=== PATIENT | female | born 1955 | race Caucasian/White ===

== ENCOUNTER 2022-06-11 08:19 | Emergency (ER) | payer MEDICARE ==
--- NOTE | 2022-06-11 09:20 | ERPHSYRPT ---
- History of Present Illness Time Seen by Provider: 06/11/22 08:40 Source: patient Exam Limitations: no limitations Patient Subjective Stated Complaint: fell last night between [id number] after tripping on dog bed. fell on chest. c/o left sided chest wall pain radiating brandy und to back. Triage Nursing Assessment: Pt ambulates to ER bed 5 without assistance. Pt appears slightly SOB upon arrival to room. Pt changed into gown and placed on monitor. SOB resolves the longer pt sits at rest. Pt reports she tripped &fell last night on dog bed. States landed on chest. C/o L sided chest wall pain that radiates around to back. States since falling, feels SOB on exertion and when taking a deep breath. No bruising noted to L chest/back, but tenderness noted upon palpation. Lung sounds clear.Sat 95% on RA. Skin PWS. A & OX3, answers all questions appropriately. Physician History: This is an obese 66-year-old white female patient who does have history of heart surgery in the past and presents to the emergency department with history of falling after tripping over her dog late last night. She fell onto her left side of her chest. Patient states she now has left-sided chest pain and there is pain with deep inspiration in this area. Prior to the injury patient had no complaints of pain or shortness of breath. Patient took a [place] 5/325 at 0430 this morning. Occurred: yesterday (Last night) Reason for Fall: tripped (Over her dog) Injuries/Pain Location: chest (Left side chest) Loss of Consciousness: no loss of consciousness Quality: aching Severity of Pain-Max: moderate Severity of Pain-Current: moderate Modifying Factors: Improves With: other (Deep breath worsens) Associated Symptoms (Fall): chest pain (Left lateral chest with deep inspiration), shortness of breath (After the fall because of painful respiration with deep breathing) Allergies/Adverse Reactions: meperidine HCl [From Demerol] Allergy (Verified 06/11/22 08:29) Tetanus Vaccines and Toxoid [Tetanus Vaccines & Toxoid] Allergy (Verified 06/11/22 08:29) Home Medications: Aspirin [Aspirin EC] 325 mg PO DAILY 11/15/15 [History] Amitriptyline HCl 25 mg [Amitriptyline 25 mg Tablet] 25 mg PO TID 06/11/22 [History] Atorvastatin Calcium 40 mg PO DAILY 06/11/22 [History] Dexlansoprazole [Dexilant] 60 mg PO DAILY 06/11/22 [History] Ezetimibe 10 mg [Zetia 10 MG] 10 mg PO DAILY 06/11/22 [History] Hydrocodone/Acetaminophen [Hydrocodone-Acetamin 5-325 mg] 5 mg PO BID 06/11/22 [History] Metoprolol Tartrate 25 mg [Lopressor 25MG Tab] 25 mg PO BID 06/11/22 [History] Mirabegron [Myrbetriq] 50 mg PO DAILY 06/11/22 [History] Telmisartan 80 mg [Micardis 80 MG Tablet] 80 mg PO DAILY 06/11/22 [History] Zolpidem Tartrate 5 mg [Ambien 5 MG Tablet] 5 mg PO DAILY 06/11/22 [History] Hx Tetanus, Diphtheria Vaccination/Date Given: Yes Hx Influenza Vaccination/Date Given: No Hx Pneumococcal Vaccination/Date Given: No Travel Risk - International Travel Have you traveled outside of the country in past 3 weeks: No - Coronavirus Screening Are you exhibiting any of the following symptoms?: No Close contact with a COVID-19 positive Pt in past 14-21 Days: No - Vaccine Status Have you recieved a Covid-19 vaccination: No - Review of Systems Constitutional: No Symptoms Eyes: No Symptoms Ears, Nose, & Throat: No Symptoms Respiratory: Dyspnea (Mild with deep breathing and exertion secondary to fall causing left lateral chest discomfort) Cardiac: Chest Pain (Left posterior lateral pain after the fall) Abdominal/Gastrointestinal: No Symptoms Genitourinary Symptoms: No Symptoms Musculoskeletal: No Symptoms Skin: No Symptoms Neurological: No Symptoms Psychological: No Symptoms Endocrine: No Symptoms Hematologic/Lymphatic: No Symptoms Immunological/Allergic: No Symptoms All Other Systems: Reviewed and Negative - Past Medical History Pertinent Past Medical History: Yes Neurological History: Epilepsy, Migraines Cardiac History: High Cholesterol, Hypertension Respiratory History: Sleep Apnea Endocrine Medical History: No Pertinent History Musculoskeletal History: Arthritis, Osteoarthritis, Osteoporosis GI Medical History: GERD Other Medical History: kidney stone - Past Surgical History Past Surgical History: Yes Cardiac: Cardiac Catheterization, Cardiac Stent Female Surgical History: Hysterectomy Other Surgical History: lt foot. rt knee. cataracts. lithotripsy - Social History Smoking Status: Never smoker Exposure to second hand smoke: No Drug Use: none Patient Lives Alone: Yes - Nursing Vital Signs Nursing Vital Signs: Initial Vital Signs Temperature 97.3 F 06/11/22 08:20 Pulse Rate 87 06/11/22 08:20 Respiratory Rate 14 06/11/22 08:20 Blood Pressure 153/73 06/11/22 08:20 O2 Sat by Pulse Oximetry 97 06/11/22 08:20 Pain Scale Pain Intensity 8 - Jeff Coma Score Best Eye Response ([place]): (4) open spontaneously Best Verbal Response ([place]): (5) oriented Best Motor Response ([place]): (6) obeys commands [place] Total: 15 - Physical Exam General Appearance: no apparent distress, alert, anxiety, obese Head Injury: no evidence of injury Eye Exam: PERRL/EOMI, eyes nml inspection ENT Exam: airway nml, nml ext.inspection, No evidence of ENT injury Neck Exam: supple, trachea midline, full range of motion, normal alignment, normal inspection Respiratory/Chest Exam: chest tenderness (Left posterior lateral to palpation and with deep breath), normal breath sounds, No respiratory distress, No crepitus, No decreased breath sounds, No rhonchi, No wheezing Cardiovascular Exam: normal heart sounds, regular rate/rhythm Gastrointestinal Exam: No tenderness Back Exam: normal inspection, normal range of motion, No CVA tenderness, No vertebral tenderness Extremity Exam: normal inspection, normal range of motion, pelvis stable Neurologic Exam: alert, oriented x 3, cooperative, historian research assistant II-XII nml as tested, normal mood/affect, nml cerebellar function, nml station & gait, sensation nml Skin Exam: normal color, warm, dry SpO2 Interpretation: normal SpO2: 95 O2 Delivery: Room Air - Course Nursing assessment & vital signs reviewed: Yes EKG Interpreted by Me: RATE (77), NORMAL AXIS, NORMAL INTERVALS, NORMAL QRS, Non-specific ST Changes, Other (No acute ischemic changes on today's EKG.) Ordered Tests: Active Orders 24 hr Category Date Time Status CHEST 2 VIEWS (PA AND LAT) Stat Exams 06/11/22 09:00 Completed - Progress Progress Note: 06/11/22 09:29 Chest x-ray shows no rib fractures. The bony thorax is intact. There is no evidence of any pneumothorax or other cardiopulmonary processes. Counseled pt/family regarding: diagnosis, need for follow-up, rad results - Departure Departure Disposition: Home Clinical Impression: Contusion of left chest wall Condition: Stable Critical Care Time: No Referrals: JOAO MUÑIZ DO [Primary Care Provider] - Follow up/PCP as directed Additional Instructions: Continue your [place] medication as prescribed. Add 600 mg of ibuprofen orally with food 3 times a day for the next for 5 days. Follow-up with your primary care physician for further evaluation and management. Prescriptions: Methocarbamol [Robaxin] 500 mg PO BID #10 tablet
--- NOTE | 2022-06-11 09:27 | XRAY ---
Indication: Chest pain. Status post fall. Comparison: None PA/lateral chest demonstrates right costophrenic angle pleural effusion/thickening and minimal right mid/left base subsegmental atelectasis/scarring. Heart not enlarged with CABG. Bony thorax intact with osteopenia and degenerative changes.
[2022-06-11 09:44] VITALS: BP 126/62; PULSE 76; O2SAT 93
== END 2022-06-11 09:44 | disposition home or self-care (01) ==
LOC: ED 08:19
DX: S20.212A Contusion of left front wall of thorax, initial encounter (principal); W01.0XXA Fall on same level from slipping, tripping and stumbling without subsequent striking against object, initial encounter; R07.9 Chest pain, unspecified; R07.1 Chest pain on breathing; E78.5 Hyperlipidemia, unspecified; I10 Essential (primary) hypertension; Z79.891 Long term (current) use of opiate analgesic; Z79.899 Other long term (current) drug therapy; Z28.310 Unvaccinated for COVID-19
CPT/HCPCS: 71046; 99282

== ENCOUNTER 2023-01-20 10:06 | Day surgery (SDC) | payer MEDICARE ==
--- NOTE | 2023-01-20 08:44 | HP ---
DATE OF SURGERY: 01/20/2023 HISTORY OF PRESENT ILLNESS: The patient is a 67-year-old week two of vomiting, nausea, some epigastric pain, sick after solids, reports worse recently, some irritable bowel syndrome. Denies any liver problems. PAST MEDICAL HISTORY: Fibromyalgia, hypertension, renal disease, had myocardial infarction in the past, reflux, arthritis, depression, hyperlipidemia, diabetes type II. PAST SURGICAL HISTORY: Cataracts. Coronary artery bypass graft. Foot surgery. EGD. Colonoscopy. MEDICATIONS: Magnesium, cholecalciferol, cyanocobalamin, calcium, Centrum, dexlansoprazole, hydrocodone, probiotic, glimepiride, metoprolol, amlodipine, cyclobenzaprine, Dexilant, aspirin, atorvastatin, ALLERGIES: DEMEROL. TETANUS TOXOID. FAMILY HISTORY: Negative in regards to this problem. SOCIAL HISTORY: No smoking. No alcohol abuse. REVIEW OF SYSTEMS: Fourteen systems reviewed. No chest pain or palpitations. Other systems negative or noncontributory as above and per preadmission questionnaire. PHYSICAL EXAMINATION: Weight 225 pounds. BMI 47. GENERAL: No acute distress. HEENT: Sclerae nonicteric. NECK: No JVD. CHEST: Equal excursion, nonlabored breathing. CVS: Regular rate and rhythm. ABDOMEN: Soft, mild epigastric pain, overweight. EXTREMITIES: No significant edema or cyanosis. NEURO: Alert, moving extremities symmetrically. PSYCH: Appropriate mood and affect. SKIN: Dry. IMPRESSION: Epigastric pain, nausea and vomiting of unclear etiology. It could be anything from gastritis, peptic ulcer disease, esophagitis, acute exacerbation of chronic cholecystitis. She had an ultrasound that was negative. She had a HIDA scan performed which was read as normal with ejection fraction 47%. It is felt she would benefit from upper endoscopy to evaluate for gastritis, peptic ulcer disease, esophagitis or other etiology. General risk of bleeding or infection, risk of bowel injury or perforation possibly requiring further procedure, risk of missed or nondiagnosis or incomplete exam, possibly requiring barium swallow, other studies or procedures, possible referral for endoscopic ultrasound, other work up or testing. She agrees to the plan and agrees to the procedure, will proceed with EGD, possible biopsy as an outpatient.
[~2023-01-20 10:06] MED LIST: Lactated Ringers 1,000 ML IV SCH
[2023-01-20] MEDS ORDERED: Lactated Ringers 1,000 ML IV ONE (10:35)
[2023-01-20] MEDS ORDERED: DIPRIVAN 200 MG/20 ML IV ONE ×3 (11:52→12:17)
[2023-01-20] MEDS ORDERED: Versed 2 MG/2 ML Injection ONE (11:52)
[2023-01-20 13:18] VITALS: BP 143/99; PULSE 78; O2SAT 95
--- NOTE | 2023-01-21 10:38 | OP ---
SURGERY DATE/TIME: 01/20/2023 1156 PREOPERATIVE DIAGNOSIS: History of some epigastric pain, vomiting and reflux. POSTOPERATIVE DIAGNOSES: 1) Very small hiatal hernia. 2) Polypoid projection proximal esophagus. 3) Mild gastritis. 4) ASA Class III. PROCEDURES: 1) EGD with hot snare polypectomy proximal stomach large polypoid lesion. 2) Cold biopsy of small bowel to evaluate for celiac sprue. 3) Cold biopsy of the antrum to evaluate for Helicobacter pylori. 4) Cold biopsy distal esophagus. 5) Hemoclip application of proximal polypectomy site. SURGEON: Dr. Juventino Mustafa. ANESTHESIA: MAC. ESTIMATED BLOOD LOSS: Minimal. INDICATIONS: As noted above. Risks and benefits explained in detail and not limited to and consent obtained. DESCRIPTION OF PROCEDURE AND FINDINGS: She was taken to the endoscopy room. MAC anesthesia induced. After official time out and no disagreement with planned procedure, bite block positioned. Video gastroscope passed down the esophagus to the patent pylorus to the third and fourth portion of the duodenum. Given her symptom complaints some random cold biopsies were taken in the proximal duodenum to evaluate for celiac. There are no signs of any ulcers or obvious mass. The scope pulled back in the stomach. She had some mild gastritis. No evidence of any ulcers. Cold biopsy taken in the antrum to evaluate for Helicobacter pylori. On retroflex she had a very small hiatal hernia. She did have a long polypoid projection in the proximal esophagus maybe a couple centimeters from the gastroesophageal junction area. It was felt this warranted snare removal. Cold biopsy had been taken in the distal esophagus mild erythema to evaluate for early esophagitis. There is no gross evidence of any Juan's. No evidence of any obvious masses. The hot snare was then used to snare this polypoid projection in the proximal stomach removed with hot snare polypectomy. It had a little bit of ooze dripping from the base. It was elected to place some Hemoclips. Two Hemoclips were fired. It was difficult given the patient's bleeding and extensive motion given her obesity. Appeared to have adequate hemostasis at this point. At the patient has recurrent bleeding likely will need general anesthetic and paralysis to have a better angle at that if she rebled from that area. Scope is withdrawn. The patient tolerated the procedure well. There were no immediate complications.
== END 2023-01-20 13:28 | disposition home or self-care (01) ==
LOC: SDC 10:06
PROVIDERS: ATTEND Surgery
DX: K44.9 Diaphragmatic hernia without obstruction or gangrene (principal); R10.13 Epigastric pain; R11.10 Vomiting, unspecified; K21.9 Gastro-esophageal reflux disease without esophagitis; E11.9 Type 2 diabetes mellitus without complications; K22.89 Other specified disease of esophagus; K29.50 Unspecified chronic gastritis without bleeding; K22.81 Esophageal polyp
CPT/HCPCS: 82947; J2250; J2704

== ENCOUNTER 2023-12-23 06:00 | Day surgery (SDC) | payer MEDICARE ==
[2023-12-23 06:28] LABS: Hematocrit 45.9 % (35-47); Hemoglobin 14.8 g/dL (12.0-16.0); Mean Cell Volume 99.1 fL (78-100); Mean Corpuscular Hgb Concent. 32.2 g/dL (32-36); Mean Platelet Volume 10.5 fL (7.5-11.0); Platelet Count 307 x10^3/uL (150-450); Red Blood Count 4.63 x10^6/uL (4.1-5.4); Red Cell Distribution Width 13.8 % (11.5-14.0); White Blood Count 7.9 x10^3/uL (4.0-10.5)
[2023-12-23] MEDS ORDERED: CEFAZOLIN 2 GM-D5W BAG** 2 GM/50 ML ML IV SCH (06:30)
[2023-12-23] MEDS ORDERED: Lactated Ringers 1,000 ML IV SCH (06:30)
[2023-12-23 06:36] VITALS: RESP 16
[2023-12-23] MEDS ORDERED: Xylocaine 1% Vial 30 ML PF IJ ONE (06:49)
[2023-12-23] MEDS ORDERED: Marcaine Mpf 0.5% Vial 30 Ml ONE (06:49)
[2023-12-23] MEDS ORDERED: Transderm Scop 1.5MG Patch TOP PRN (06:49)
[2023-12-23 06:52] LABS: ALBUMIN 4.2 g/dL (3.5-5.0); ANION GAP 14.6 MEQ/L (5-15); BILIRUBIN,TOTAL 0.5 mg/dL (0.2-1.3); Calcium 9.9 mg/dL (8.4-10.2); Creatinine 1 0.83 mg/dL (0.52-1.04); EST GLOMERULAR FILTRATION RATE 76.3 ML/MIN; Potassium 4.3 mmol/L (3.5-5.1); Total Protein 7.2 g/dL (6.3-8.2)
[2023-12-23] MEDS ORDERED: DIPRIVAN 200 MG/20 ML IV ONE (06:56)
[2023-12-23] MEDS ORDERED: Amidate 20 MG/10 ML IV ONE (06:57)
[2023-12-23] MEDS ORDERED: Zemuron 100 MG/10 ML ONE (06:57)
[2023-12-23] MEDS ORDERED: Decadron 4 MG INJ ONE (06:57)
[2023-12-23] MEDS ORDERED: Zofran 4 MG/2 ML VIAL ONE (06:57)
[2023-12-23] MEDS ORDERED: Xylocaine-Mpf 2% 5 Ml Vial ONE (06:57)
[2023-12-23] MEDS ORDERED: SUBLIMAZE 100 MCG/2 ML ONE (06:58)
[2023-12-23] MEDS ORDERED: BRIDION 200MG/2ML IV ONE (08:17)
--- NOTE | 2023-12-23 09:44 | XRAY ---
Indication: Left 5th metatarsal ORIF. Intraoperative fluoroscopy provided for 1 minute and 44 seconds. 9 digital spot images submitted for interpretation ultimately demonstrates single fixation screw fixating 5th metatarsal base fracture in good apposition/alignment. Correlate with intraoperative findings/report.
[2023-12-23 10:28] VITALS: BP 134/64; PULSE 70; O2SAT 92
--- NOTE | 2023-12-23 10:48 | XRAY ---
One minute and 44 seconds of fluoroscopy was used in surgery for a left 5th metatarsal ORIF.
[2023-12-23 10:54] VITALS: TEMP 98.6
--- NOTE | 2023-12-26 10:46 | OP ---
SURGERY DATE: 12/23/2023 0714 PREOPERATIVE DIAGNOSES: 1) Left foot pain. 2) Avulsion fracture fifth metatarsal base. 3) Delayed union of fracture. POSTOPERATIVE DIAGNOSES: 1) Left foot pain. 2) Avulsion fracture fifth metatarsal base. 3) Delayed union of fracture. PROCEDURE: Open reduction internal fixation of fifth metatarsal fracture. SURGEON: David Pat DPM. DEOILING MACHINE OPERATOR: None. ANESTHESIA: Monitored anesthesia care with a local block consisting of 20 cc of a 1:1 mixture of 1% lidocaine plain and 0.5% bupivacaine plain injected in a mini-Weiner block-type fashion. HEMOSTASIS: Pressure dressing. ESTIMATED BLOOD LOSS: Approximately 3 cc. MATERIALS: 4.5 x 35 mm 50% threaded Rashid screw [facility], 3-0 Nylon. INJECTABLES: 20 cc of a 1:1 mixture of 1% lidocaine plain and 0.5% bupivacaine plain injected in a mini-Weiner block-type fashion. INDICATION FOR SURGERY: Stormy is a very pleasant 68-year-old female who went to [place] and fell from a height of ground level resulting in fracture to her left fingers as well as to her left foot. As a result, the patient has been weightbearing to tolerance. However this has caused her a significant amount of pain with ambulation. From initial x-rays there is a significant amount of distraction of the avulsion fracture of the fifth metatarsal. The patient was provided options in regards to operative versus conservative and patient opted to proceed with surgical intervention given the information in regards to possibility of delayed union and nonunion. As a result the patient understands she will need to be non-weightbearing to the left lower extremity for approximately four to six weeks. No guarantees have been provided as to the outcome of surgical intervention. However the goal is to reduce the fracture and improve the chances of the fracture healing without complication. The patient understands all the risks, complications and benefits of surgical intervention at this time including but not limited to infection, hematoma, seroma, possibility of delayed wound healing, nonwound healing and possible need for surgical intervention at a later date. No guarantees have been provided as to the outcome. It is at this time we decided to proceed. DESCRIPTION OF PROCEDURE AND FINDINGS: The patient was brought into the OR and placed on the OR table in the supine position. At this time monitored anesthesia was administered until the patient was sedated. Following this, the left lower extremity was prepped and draped in the typical sterile fashion and lowered onto the surgical field. At this time, a pointed reduction forceps was utilized to reduce the fracture fragment percutaneously. An incision approximately 1 cm in length was carried out just proximal to the base of the fifth metatarsal. A guide wire was introduced from the proximal tip of the fracture and through the intramedullary cavity of the fifth metatarsal. Following this, a drill was introduced and a 4.5 x 75 mm screw was deemed adequate gaining excellent compression into the fracture site this was checked under multiple views and deemed to be accurate. From that standpoint, copious amounts of sterile saline were utilized to flush the surgical site. 3-0 Nylon was utilized to coapt the surgical incision. Following this, a dressing consisting of Betadine, Adaptic, 4x4's, Kerlix and CONNER and well-padded posterior splint was applied to the patients left lower extremity with the foot orthogonal relative to longitudinal axis of the leg. The patient was then reversed from anesthesia and returned to the postoperative anesthesia care unit with vital signs stable and vascular status intact. The patient was handled the anesthesia as well as the procedure without significant complication. Postoperative orders as indicated in the patient's discharge chart.
== END 2023-12-23 10:45 | disposition home or self-care (01) ==
LOC: SDC 06:00
PROVIDERS: ATTEND Podiatrist Foot & Ankle Surgery
DX: S92.352A Displaced fracture of fifth metatarsal bone, left foot, initial encounter for closed fracture (principal); M79.672 Pain in left foot
CPT/HCPCS: 01480; 28485; 36415; 73630; 76000; 80053; 85027; 93005; C1713; J0690; J1100; J2001; J2405; J2704; J3010; A9270-GY

== ENCOUNTER 2024-03-04 08:08 | Day surgery (SDC) | payer MEDICARE ==
[2024-03-04] MEDS ORDERED: LIDOCAINE HCL 2% 100 MG/5 ML IJ ONE (08:09)
[2024-03-04] MEDS ORDERED: Depo-Medrol 40 MG/ML IM ONE (08:09)
[2024-03-04] MEDS ORDERED: Lactated Ringers 1,000 ML IV ONE (09:57)
[2024-03-04] MEDS ORDERED: DIPRIVAN 200 MG/20 ML IV ONE (10:17)
--- NOTE | 2024-03-04 12:24 | XRAY ---
Indication: Bilateral L4-S1 MBB. Intraoperative fluoroscopy provided for 8 seconds. Single digital spot image submitted for interpretation demonstrates posterior needle tips projecting over expected left and right L4-S1 nerve roots. Correlate with intraoperative findings/report.
--- NOTE | 2024-03-04 12:53 | XRAY ---
8 seconds of fluoroscopy was used in surgery for a bilateral L4-S1 MBB.
== END 2024-03-04 10:45 | disposition home or self-care (01) ==
LOC: SDC-PAIN 08:08
PROVIDERS: ATTEND Psychiatry & Neurology Pain Medicine
DX: M47.816 Spondylosis without myelopathy or radiculopathy, lumbar region (principal); E11.9 Type 2 diabetes mellitus without complications
CPT/HCPCS: 64493; 64494; 72020; 77002; 82947; J1010; J2704; J1030

== ENCOUNTER 2024-04-14 08:05 | Day surgery (SDC) | payer MEDICARE ==
[2024-04-14] MEDS ORDERED: Depo-Medrol 40 MG/ML IM ONE (08:06)
[2024-04-14] MEDS ORDERED: BUPIVACAINE 0.5% VIAL IJ ONE (08:06)
[2024-04-14] MEDS ORDERED: DIPRIVAN 200 MG/20 ML IV ONE (09:06)
[2024-04-14] MEDS ORDERED: Lactated Ringers 1,000 ML IV ONE (09:16)
--- NOTE | 2024-04-14 10:28 | XRAY ---
Indication: Bilateral L4-S1 MBB. Intraoperative fluoroscopy provided for 13 seconds. Single digital spot image submitted for interpretation demonstrates posterior needle tips projecting over the expected left and right L4-S1 nerve roots. Correlate with intraoperative findings/report.
--- NOTE | 2024-04-14 12:07 | XRAY ---
13 seconds of fluoroscopy was used in surgery for a bilateral L4-S1 MBB.
== END 2024-04-14 09:30 | disposition home or self-care (01) ==
LOC: SDC-PAIN 08:05
PROVIDERS: ATTEND Psychiatry & Neurology Pain Medicine
DX: M47.816 Spondylosis without myelopathy or radiculopathy, lumbar region (principal); E11.9 Type 2 diabetes mellitus without complications
CPT/HCPCS: 64493; 64494; 72020; 77002; 82947; J1010; J2704

== ENCOUNTER 2024-06-09 10:06 | Day surgery (SDC) | payer MEDICARE ==
[2024-06-09] MEDS ORDERED: BUPIVACAINE 0.5% VIAL IJ ONE (10:07)
[2024-06-09] MEDS ORDERED: Depo-Medrol 40 MG/ML IM ONE (10:07)
[2024-06-09] MEDS ORDERED: LIDOCAINE HCL 1% 50 MG/5 ML VL PF IJ ONE (10:07)
[2024-06-09] MEDS ORDERED: Lactated Ringers 1,000 ML IV ONE (11:41)
[2024-06-09] MEDS ORDERED: DIPRIVAN 200 MG/20 ML IV ONE (11:58)
--- NOTE | 2024-06-09 13:15 | XRAY ---
Indication: Right L4-S1 RFA. Intraoperative fluoroscopy provided for 27 seconds. 4 lateral digital spot image submitted for interpretation demonstrates posterior needle tips projecting over the expected right L4-S1 nerve roots. Correlate with intraoperative findings/report.
--- NOTE | 2024-06-09 13:17 | XRAY ---
27 seconds of fluoroscopy was used in surgery for a right L4-S1 RFA.
== END 2024-06-09 12:32 | disposition home or self-care (01) ==
LOC: SDC-PAIN 10:06
PROVIDERS: ATTEND Psychiatry & Neurology Pain Medicine
DX: M47.817 Spondylosis without myelopathy or radiculopathy, lumbosacral region (principal); E11.9 Type 2 diabetes mellitus without complications
CPT/HCPCS: 64635; 64636; 72100; 77002; 82947; J2001; J2704

== ENCOUNTER 2024-06-23 09:43 | Day surgery (SDC) | payer MEDICARE ==
[2024-06-23] MEDS ORDERED: LIDOCAINE HCL 1% 50 MG/5 ML VL PF IJ ONE (09:44)
[2024-06-23] MEDS ORDERED: BUPIVACAINE 0.5% VIAL IJ ONE (09:44)
[2024-06-23] MEDS ORDERED: Depo-Medrol 40 MG/ML IM ONE (09:44)
[2024-06-23] MEDS ORDERED: DIPRIVAN 200 MG/20 ML IV ONE (11:26)
--- NOTE | 2024-06-23 11:57 | XRAY ---
Indication: Left L4-S1 RFA. Intraoperative fluoroscopy provided for 19 seconds. 3 digital spot image submitted for interpretation demonstrates posterior needle tips projecting over the expected left L4-S1 nerve roots. Correlate with intraoperative findings/report.
--- NOTE | 2024-06-23 13:39 | XRAY ---
19 seconds of fluoroscopy was used in surgery for a left L4-S1 RFA.
[2024-06-23] MEDS ORDERED: Lactated Ringers 1,000 ML IV ONE (15:00)
== END 2024-06-23 12:00 ==
LOC: SDC-PAIN 09:43
PROVIDERS: ATTEND Psychiatry & Neurology Pain Medicine
DX: M47.817 Spondylosis without myelopathy or radiculopathy, lumbosacral region (principal); E11.9 Type 2 diabetes mellitus without complications
CPT/HCPCS: 64635; 64636; 72100; 77002; 82947; J2001; J2704

== ENCOUNTER 2025-01-06 09:27 | Day surgery (SDC) | payer MEDICARE ==
[2025-01-06] MEDS ORDERED: LIDOCAINE HCL 2% 100 MG/5 ML IJ ONE (09:28)
[2025-01-06] MEDS ORDERED: dexAMETHasone sodium phosphate IJ ONE (09:28)
[2025-01-06] MEDS ORDERED: Lactated Ringers 500 ML IV ONE (09:36)
[2025-01-06] MEDS ORDERED: propofoL IV ONE (11:17)
--- NOTE | 2025-01-06 11:56 | XRAY ---
Indication: Left C2-C4 MBB. Intraoperative fluoroscopy provided for 38 seconds. 2 digital spot image submitted for interpretation demonstrates posterior needle tips projecting over expected left C2-C4 nerve roots. Correlate with intraoperative findings/report.
--- NOTE | 2025-01-06 13:13 | XRAY ---
38 seconds of fluoroscopy was used in surgery for a left C2-C4 MBB.
== END 2025-01-06 11:54 | disposition home or self-care (01) ==
LOC: SDC-PAIN 09:27
PROVIDERS: ATTEND Psychiatry & Neurology Pain Medicine
DX: M47.812 Spondylosis without myelopathy or radiculopathy, cervical region (principal); E11.9 Type 2 diabetes mellitus without complications
CPT/HCPCS: 64490; 72040; 77002; 82947; J1100; J2704

== ENCOUNTER 2025-01-20 08:14 | Day surgery (SDC) | payer MEDICARE ==
[2025-01-20] MEDS ORDERED: dexAMETHasone sodium phosphate IJ ONE (08:15)
[2025-01-20] MEDS ORDERED: BUPIVACAINE 0.5% VIAL IJ ONE (08:15)
[2025-01-20] MEDS ORDERED: propofoL IV ONE (09:55)
--- NOTE | 2025-01-20 20:55 | XRAY ---
Indication: Left C2-C4 MBB. Intraoperative fluoroscopy provided for 35 seconds. 2 digital spot image submitted for interpretation demonstrates posterior needle tips projecting over expected left C2-C4 nerve roots. Correlate with intraoperative findings/report.
--- NOTE | 2025-01-20 21:51 | XRAY ---
35 seconds of fluoroscopy was used in surgery for a left C2-C4 MBB.
== END 2025-01-20 10:20 | disposition home or self-care (01) ==
LOC: SDC-PAIN 08:14
PROVIDERS: ATTEND Psychiatry & Neurology Pain Medicine
DX: M47.812 Spondylosis without myelopathy or radiculopathy, cervical region (principal); E11.9 Type 2 diabetes mellitus without complications
CPT/HCPCS: 64490; 64491; 72040; 77002; 82947; J1100; J2704

== ENCOUNTER 2025-02-09 08:19 | Day surgery (SDC) | payer MEDICARE ==
[2025-02-09] MEDS ORDERED: LIDOCAINE HCL 2% 100 MG/5 ML IJ ONE (08:20)
[2025-02-09] MEDS ORDERED: dexAMETHasone sodium phosphate IJ ONE (08:20)
[2025-02-09] MEDS ORDERED: Lactated Ringers 500 ML IV ONE (08:44)
[2025-02-09] MEDS ORDERED: propofoL IV ONE (10:07)
--- NOTE | 2025-02-09 12:32 | XRAY ---
Indication: Right C2-C4 MBB. Intraoperative fluoroscopy provided for 26 seconds. 2 digital spot images submitted for interpretation demonstrates posterior needle tips projecting over expected right C2-C4 nerve roots. Correlate with intraoperative findings/report.
--- NOTE | 2025-02-09 12:54 | XRAY ---
26 seconds of fluoroscopy was used in surgery for a right C2-C4 MBB.
== END 2025-02-09 10:54 | disposition home or self-care (01) ==
LOC: SDC-PAIN 08:19
PROVIDERS: ATTEND Psychiatry & Neurology Pain Medicine
DX: M47.812 Spondylosis without myelopathy or radiculopathy, cervical region (principal); E11.9 Type 2 diabetes mellitus without complications
CPT/HCPCS: 64490; 64491; 72040; 77002; 82947; J1100; J2704